=== PATIENT | female | born 1990 | race Two or more races ===

== ENCOUNTER → 2020-02-26 | Outpatient (CLI) | payer OTHER | END | disposition home or self-care (01) | LOC: OFIC 805 14:30 | PROVIDERS: ATTEND Otolaryngology | DX: R22.1 Localized swelling, mass and lump, neck (principal) ==

== ENCOUNTER 2020-02-27 06:37 | Outpatient (CLI) | payer OTHER | END 2020-02-27 10:00 | disposition home or self-care (01) | LOC: SONOGRAMA 06:37 | PROVIDERS: ATTEND Otolaryngology | DX: R22.1 Localized swelling, mass and lump, neck (principal) ==

== ENCOUNTER → 2020-03-02 | Outpatient (CLI) | payer OTHER | END | disposition home or self-care (01) | LOC: OFIC 805 12:15 | PROVIDERS: ATTEND Otolaryngology | DX: R22.1 Localized swelling, mass and lump, neck (principal) ==